=== PATIENT | female | born 1985 | race Caucasian/White ===

== ENCOUNTER 2020-07-14 01:28 | Emergency (ER) | payer MEDICAID, OTHER ==
[~2020-07-14] VITALS: Ht 149.9 cm; Wt 69.0 kg
[2020-07-14] MEDS ORDERED: SODIUM CHLORIDE 0.9% 1,000 ML IV ONE ×2 (02:00→05:00)
[2020-07-14 03:09] LABS: BASOPHILS % 0.4 % (0.0-2.0); EOSINOPHILS % 1.6 % (0.0-5.0); HEMATOCRIT. 35.7 % (36.0-48.0); HEMOGLOBIN. 11.9 g/dL (12.0-16.0); LYMPHOCYTES % 20.4 % (20.0-50.0); MEAN CORPUSCULAR HEMOGLOBIN 28.8 pg (28.0-32.0); MEAN CORPUSCULAR VOLUME 86.1 fL (81.0-99.0); MEAN PLATELET VOLUME 9.5 fl (7.4-10.4); MONOCYTES % 5.6 % (2.0-8.0); PLATELET 209 x1000/uL (130-400); RED BLOOD CELL COUNT 4.15 mill/uL (4.2-5.4); RED CELL DISTRIBUTION WIDTH 15.6 % (11.6-14.6)
[2020-07-14 03:10] LABS: CHLORIDE 109 mEq/L (98-107)
[2020-07-14] MEDS ORDERED: MORPHINE SULFATE 4 MG/ML CPJ (NOT FOR IM USE) IV ONE ×2 (03:15→05:00)
[2020-07-14] MEDS ORDERED: ONDANSETRON HCL 4MG/2ML INJ IV ONE (03:15)
[2020-07-14 03:37] LABS: B-HCG QUANTITATIVE 2682 mIU/mL (<3)
[2020-07-14] MEDS ORDERED: METHYLERGONOVINE MALEATE 0.2 MG/ML IM ONE (04:30)
[2020-07-14 08:30] VITALS: BP 125/80
== END 2020-07-14 09:30 | disposition home or self-care (01) ==
LOC: ER 01:28
DX: O03.9 Complete or unspecified spontaneous abortion without complication (principal); N93.9 Abnormal uterine and vaginal bleeding, unspecified; I49.9 Cardiac arrhythmia, unspecified
CPT/HCPCS: 36415; 76801; 76817; 80048; 84702; 85025; 86850; 86900; 86901; 93005; 96372; 96374; 96375; 96376; 99285; J2210; J2270; J2405; J7030

== ENCOUNTER 2020-07-23 22:29 | Emergency (ER) | payer OTHER ==
[~2020-07-23] VITALS: Ht 149.9 cm; Wt 69.0 kg
[2020-07-24] MEDS ORDERED: SODIUM CHLORIDE 0.9% 1,000 ML IV ONE
[2020-07-24 00:17] LABS: BASOPHILS % 0.5 % (0.0-2.0); EOSINOPHILS % 2.6 % (0.0-5.0); HEMATOCRIT. 30.7 % (36.0-48.0); HEMOGLOBIN. 10.3 g/dL (12.0-16.0); LYMPHOCYTES % 29.7 % (20.0-50.0); MEAN CORPUSCULAR HEMOGLOBIN 28.9 pg (28.0-32.0); MEAN CORPUSCULAR VOLUME 85.8 fL (81.0-99.0); MEAN PLATELET VOLUME 8.9 fl (7.4-10.4); NEUTROPHILS % 61.2 % (40.0-76.0); PLATELET 290 x1000/uL (130-400); RED BLOOD CELL COUNT 3.58 mill/uL (4.2-5.4); RED CELL DISTRIBUTION WIDTH 14.8 % (11.6-14.6)
[2020-07-24 00:20] LABS: CHLORIDE 110 mEq/L (98-107)
[2020-07-24 00:31] LABS: B-HCG QUANTITATIVE 188 mIU/mL (<3)
[2020-07-24 00:40] LABS: CLARITY URINE CLEAR (CLEAR); COLOR URINE YELLOW (YELLOW); KETONES URINE NEGATIVE (NEGATIVE); LEUKOCYTE ESTERASE URINE 1+ (NEGATIVE); NITRITE URINE NEGATIVE (NEGATIVE); OCCULT BLOOD URINE 3+ (NEGATIVE); PH URINE 5.5 (4.5-8.0); PROTEIN URINE NEGATIVE (NEGATIVE); SPECIFIC GRAVITY URINE 1.025 (1.005-1.030); UROBILINOGEN URINE 0.2 E.U./dL (0.2-1.0)
[2020-07-24] MEDS ORDERED: MORPHINE SULFATE 4 MG/ML CPJ (NOT FOR IM USE) IV ONE ×2 (01:45)
[2020-07-24 03:15] VITALS: BP 115/65
== END 2020-07-24 03:15 | disposition home or self-care (01) ==
LOC: ER 22:29
DX: O03.4 Incomplete spontaneous abortion without complication (principal)
CPT/HCPCS: 36415; 76801; 76817; 80053; 81003; 84702; 85025; 86850; 86900; 86901; 96361; 96374; 96376; 99285; J2270; J7030; Z7610

== ENCOUNTER 2023-05-24 16:05 | Emergency (ER) | payer OTHER ==
[~2023-05-24] VITALS: Ht 152.4 cm; Wt 68.0 kg
[2023-05-24 16:29] VITALS: O2SAT 100
[2023-05-24] MEDS ORDERED: KETOROLAC 30MG/ML VIAL IM ONE (17:30)
[2023-05-24] MEDS ORDERED: NAPR-1176 MT (18:14)
[2023-05-24] MEDS ORDERED: KETOROLAC 30MG/ML VIAL IM NR (20:30)
[2023-05-24 20:33] VITALS: BP 130/70; PULSE 76; RESP 16; TEMP 97.3
== END 2023-05-24 20:36 | disposition home or self-care (01) ==
LOC: ER 16:05
DX: S80.01XA Contusion of right knee, initial encounter (principal); W18.30XA Fall on same level, unspecified, initial encounter; Y93.89 Activity, other specified; Y92.89 Other specified places as the place of occurrence of the external cause; Y99.8 Other external cause status
CPT/HCPCS: 81025; 73562; 99283; J1885; Z7610 ×2

== ENCOUNTER 2023-05-30 01:27 | Emergency (ER) | payer OTHER ==
[~2023-05-30] VITALS: Ht 149.9 cm; Wt 72.7 kg
[~2023-05-30 01:27] MED LIST: NAPR-1176 MT
[2023-05-30 01:40] VITALS: BP 120/54; PULSE 68; RESP 16; TEMP 98.1; O2SAT 98
[2023-05-30 02:02] LABS: BASOPHILS % 0.4 % (0.0-2.0); EOSINOPHILS % 1.2 % (0.0-5.0); HEMATOCRIT. 38.5 % (36.0-48.0); HEMOGLOBIN. 12.7 g/dL (12.0-16.0); LYMPHOCYTES % 24.3 % (20.0-50.0); MEAN CORPUSCULAR HEMOGLOBIN 28.7 pg (28.0-32.0); MEAN CORPUSCULAR HGB CONC 32.9 g/dL (31.0-37.0); MEAN PLATELET VOLUME 9.1 fl (7.4-10.4); MONOCYTES % 6.1 % (2.0-8.0); PLATELET 244 x1000/uL (130-400); RED BLOOD CELL COUNT 4.42 mill/uL (4.2-5.4); RED CELL DISTRIBUTION WIDTH 14.7 % (11.6-14.6); WHITE BLOOD COUNT 12.5 x1000/uL (4.5-11.0)
[2023-05-30 02:15] LABS: CHLORIDE 111 mEq/L (98-107); INDEX HEMOLYSI 1 (1-3); INDEX ICTERIC 1 (1-4); INDEX LIPEMIC 1 (1-3); POTASSIUM 4.1 mEq/L (3.5-5.1); SODIUM 139 mEq/L (136-145)
[2023-05-30 02:21] LABS: ALANINE AMINOTRANSFERASE 19 IU/L (13-61); ALBUMIN 3.4 g/dL (3.4-5.0); ASPARTATE AMINOTRANSFERASE 9 IU/L (15-37); BILIRUBIN TOTAL 0.2 mg/dL (0.1-1.0); CALCIUM 8.3 mg/dL (8.5-10.1); CARBON DIOXIDE 26 mEq/L (21-32); CREATININE 0.7 mg/dL (0.6-1.3); GLUCOSE 96 mg/dL (70-105); PROTEIN TOTAL 7.4 g/dL (6.0-8.3); UREA NITROGEN BLOOD 13 mg/dL (7-21)
[2023-05-30 03:57] LABS: CLARITY URINE CLEAR (CLEAR); COLOR URINE YELLOW (YELLOW); GLUCOSE URINE NEGATIVE (NEGATIVE); KETONES URINE NEGATIVE (NEGATIVE); LEUKOCYTE ESTERASE URINE 2+ (NEGATIVE); NITRITE URINE NEGATIVE (NEGATIVE); OCCULT BLOOD URINE 2+ (NEGATIVE); PROTEIN URINE NEGATIVE (NEGATIVE); SPECIFIC GRAVITY URINE 1.007 (1.005-1.030); UROBILINOGEN URINE 0.2 E.U./dL (0.2-1.0)
[2023-05-30] MEDS ORDERED: NITR-87 MT (04:13)
[2023-05-30 04:19] LABS: BACTERIA URINE 1+; RBC URINE 0-2 /hpf (0-2); SQUAMOUS EPITHELIAL CELL URINE FEW /lpf (RARE/1+)
== END 2023-05-30 05:22 | disposition home or self-care (01) ==
LOC: ER 01:27
DX: N39.0 Urinary tract infection, site not specified (principal)
CPT/HCPCS: 36415; 80053; 81003; 85025; 99283

== ENCOUNTER 2023-07-24 15:51 | Emergency (ER) | payer OTHER ==
[~2023-07-24] VITALS: Ht 157.5 cm; Wt 67.0 kg
[~2023-07-24 15:51] MED LIST changes: +NITR-87 MT
[2023-07-24 16:39] VITALS: RESP 18; O2SAT 100
[2023-07-24 16:45] LABS: BASOPHILS % 0.7 % (0.0-2.0); EOSINOPHILS % 2.6 % (0.0-5.0); HEMATOCRIT. 40.9 % (36.0-48.0); HEMOGLOBIN. 13.4 g/dL (12.0-16.0); LYMPHOCYTES % 30.8 % (20.0-50.0); MEAN CORPUSCULAR HEMOGLOBIN 28.7 pg (28.0-32.0); MEAN CORPUSCULAR HGB CONC 32.8 g/dL (31.0-37.0); MEAN CORPUSCULAR VOLUME 87.5 fL (81.0-99.0); MEAN PLATELET VOLUME 9.9 fl (7.4-10.4); MONOCYTES % 5.9 % (2.0-8.0); PLATELET 250 x1000/uL (130-400); RED BLOOD CELL COUNT 4.67 mill/uL (4.2-5.4); RED CELL DISTRIBUTION WIDTH 14.6 % (11.6-14.6); WHITE BLOOD COUNT 10.8 x1000/uL (4.5-11.0)
[2023-07-24 16:54] LABS: CHLORIDE 106 mEq/L (98-107); INDEX HEMOLYSI 1 (1-3); INDEX ICTERIC 1 (1-4); INDEX LIPEMIC 1 (1-3); POTASSIUM 3.7 mEq/L (3.5-5.1); SODIUM 139 mEq/L (136-145)
[2023-07-24 17:05] LABS: CLARITY URINE CLEAR (CLEAR); COLOR URINE YELLOW (YELLOW); GLUCOSE URINE NEGATIVE (NEGATIVE); KETONES URINE NEGATIVE (NEGATIVE); LEUKOCYTE ESTERASE URINE NEGATIVE (NEGATIVE); NITRITE URINE NEGATIVE (NEGATIVE); OCCULT BLOOD URINE 3+ (NEGATIVE); PH URINE 6.5 (4.5-8.0); PROTEIN URINE NEGATIVE (NEGATIVE); SPECIFIC GRAVITY URINE 1.007 (1.005-1.030); UROBILINOGEN URINE 0.2 E.U./dL (0.2-1.0)
[2023-07-24 17:07] LABS: BACTERIA URINE NONE SEEN; SQUAMOUS EPITHELIAL CELL URINE NONE SEEN /lpf (RARE/1+); WBC URINE 0-2 /hpf (0-2); YEAST URINE NONE SEEN
[2023-07-24 17:08] LABS: ALANINE AMINOTRANSFERASE 18 IU/L (13-61); ALBUMIN 3.7 g/dL (3.4-5.0); ASPARTATE AMINOTRANSFERASE 12 IU/L (15-37); B-HCG QUANTITATIVE < 1 mIU/mL (<3); BILIRUBIN TOTAL 0.3 mg/dL (0.1-1.0); CALCIUM 8.6 mg/dL (8.5-10.1); CARBON DIOXIDE 28 mEq/L (21-32); CREATININE 0.5 mg/dL (0.6-1.3); GLUCOSE 91 mg/dL (70-105); PROTEIN TOTAL 7.9 g/dL (6.0-8.3); UREA NITROGEN BLOOD 8 mg/dL (7-21)
[2023-07-24 18:00] VITALS: BP 124/71; PULSE 71; TEMP 97.9
== END 2023-07-24 18:02 | disposition home or self-care (01) ==
LOC: ER 15:51
DX: O46.91 Antepartum hemorrhage, unspecified, first trimester (principal); Z3A.01 Less than 8 weeks gestation of pregnancy
CPT/HCPCS: 36415; 80053; 81003; 84702; 85025; 86850; 86900; 99283

== ENCOUNTER 2023-07-31 13:12 | Emergency (ER) | payer OTHER ==
[~2023-07-31] VITALS: Ht 149.9 cm; Wt 75.0 kg
[2023-07-31 13:14] VITALS: BP 127/86; PULSE 98; RESP 16; TEMP 98.5; O2SAT 100
[2023-07-31] MEDS ORDERED: METOCLOPRAMIDE HCL 10MG/2ML VIAL IV ONE (16:45)
== END 2023-07-31 18:02 | disposition left against medical advice (07) ==
LOC: ER 13:12
DX: R51.9 Headache, unspecified (principal); Z53.21 Procedure and treatment not carried out due to patient leaving prior to being seen by health care provider
CPT/HCPCS: 99281

== ENCOUNTER 2023-08-02 08:41 | Emergency (ER) | payer OTHER ==
[~2023-08-02] VITALS: Ht 154.9 cm; Wt 73.0 kg
[2023-08-02 08:49] VITALS: BP 133/66; PULSE 80; RESP 18; O2SAT 100
[2023-08-02] MEDS ORDERED: ACETAMINOPHEN 325MG TABLET PO ONE (10:15)
[2023-08-02 10:51] VITALS: TEMP 98.4
[2023-08-02 11:14] LABS: CLARITY URINE CLEAR (CLEAR); COLOR URINE YELLOW (YELLOW); GLUCOSE URINE NEGATIVE (NEGATIVE); KETONES URINE NEGATIVE (NEGATIVE); LEUKOCYTE ESTERASE URINE NEGATIVE (NEGATIVE); NITRITE URINE NEGATIVE (NEGATIVE); OCCULT BLOOD URINE 1+ (NEGATIVE); PH URINE 6.5 (4.5-8.0); PROTEIN URINE NEGATIVE (NEGATIVE); UROBILINOGEN URINE 0.2 E.U./dL (0.2-1.0)
[2023-08-02 11:16] LABS: BACTERIA URINE 1+; SQUAMOUS EPITHELIAL CELL URINE NONE SEEN /lpf (RARE/1+); WBC URINE 0-2 /hpf (0-2); YEAST URINE NONE SEEN
== END 2023-08-02 13:27 | disposition home or self-care (01) ==
LOC: ER 08:41
DX: R51.9 Headache, unspecified (principal)
CPT/HCPCS: 81003; 81025; 99284

== ENCOUNTER 2023-12-02 23:49 | Emergency (ER) | payer OTHER ==
[~2023-12-02] VITALS: Ht 149.9 cm; Wt 71.0 kg
[2023-12-03 01:28] VITALS: BP 116/62; PULSE 80; RESP 18; TEMP 97.7; O2SAT 100
[2023-12-03 01:37] LABS: CLARITY URINE CLEAR (CLEAR); COLOR URINE YELLOW (YELLOW); GLUCOSE URINE NEGATIVE (NEGATIVE); KETONES URINE NEGATIVE (NEGATIVE); LEUKOCYTE ESTERASE URINE NEGATIVE (NEGATIVE); NITRITE URINE NEGATIVE (NEGATIVE); OCCULT BLOOD URINE 1+ (NEGATIVE); PROTEIN URINE NEGATIVE (NEGATIVE); SPECIFIC GRAVITY URINE 1.025 (1.005-1.030); UROBILINOGEN URINE 0.2 E.U./dL (0.2-1.0)
[2023-12-03 02:48] LABS: SQUAMOUS EPITHELIAL CELL URINE 1+ /lpf (RARE/1+)
[2023-12-03 02:49] LABS: RBC URINE 0-2 /hpf (0-2); WBC URINE 0-2 /hpf (0-2)
[2023-12-03 02:50] LABS: BACTERIA URINE NONE SEEN
== END 2023-12-03 06:11 | disposition left against medical advice (07) ==
LOC: ER 23:58
DX: R10.9 Unspecified abdominal pain (principal); Z53.21 Procedure and treatment not carried out due to patient leaving prior to being seen by health care provider
CPT/HCPCS: 81003; 81025; 99281

== ENCOUNTER 2024-09-09 10:12 | Emergency (ER) | payer OTHER ==
[~2024-09-09] VITALS: Ht 149.9 cm; Wt 68.0 kg
[2024-09-09 10:33] VITALS: BP 128/65; PULSE 75; RESP 16; TEMP 98.6; O2SAT 100
[2024-09-09 11:03] LABS: CLARITY URINE CLEAR (CLEAR); COLOR URINE YELLOW (YELLOW); GLUCOSE URINE NEGATIVE (NEGATIVE); KETONES URINE NEGATIVE (NEGATIVE); LEUKOCYTE ESTERASE URINE NEGATIVE (NEGATIVE); NITRITE URINE NEGATIVE (NEGATIVE); OCCULT BLOOD URINE 1+ (NEGATIVE); PH URINE 6.5 (4.5-8.0); PROTEIN URINE NEGATIVE (NEGATIVE); SPECIFIC GRAVITY URINE 1.015 (1.005-1.030); UROBILINOGEN URINE 0.2 E.U./dL (0.2-1.0)
[2024-09-09 11:09] LABS: CHLORIDE 107 mEq/L (98-107); POTASSIUM 4.8 mEq/L (3.5-5.1); SODIUM 140 mEq/L (136-145)
[2024-09-09 11:10] LABS: CALCIUM 9.4 mg/dL (8.7-10.4); CARBON DIOXIDE 27 mEq/L (21-32)
[2024-09-09 11:13] LABS: BASOPHILS % 0.9 % (0.0-2.0); EOSINOPHILS % 2.8 % (0.0-5.0); HEMATOCRIT. 41.2 % (36.0-48.0); HEMOGLOBIN. 13.5 g/dL (12.0-16.0); LYMPHOCYTES % 24.2 % (20.0-50.0); MEAN CORPUSCULAR HEMOGLOBIN 29.7 pg (28.0-32.0); MEAN CORPUSCULAR HGB CONC 32.9 g/dL (31.0-37.0); MEAN CORPUSCULAR VOLUME 90.4 fL (81.0-99.0); MONOCYTES % 4.9 % (2.0-8.0); NEUTROPHILS % 67.2 % (40.0-76.0); PLATELET 240 x1000/uL (130-400); RED BLOOD CELL COUNT 4.56 mill/uL (4.2-5.4); WHITE BLOOD COUNT 9.6 x1000/uL (4.5-11.0)
[2024-09-09 11:15] LABS: CREATININE 0.7 mg/dL (0.6-1.0); GLUCOSE 89 mg/dL (70-105); UREA NITROGEN BLOOD 8 mg/dL (9-23)
[2024-09-09 11:20] LABS: BACTERIA URINE 2+; SQUAMOUS EPITHELIAL CELL URINE 1+ /lpf (RARE/1+); WBC URINE 0-2 /hpf (0-2); YEAST URINE NONE SEEN
[2024-09-09] MEDS: SODIUM CHLORIDE 0.9% 500 ML IV ONE (11:54)
[2024-09-09] MEDS: ONDANSETRON 4MG ODT PO ONE (11:56)
[2024-09-09] MEDS: MECLIZINE 25MG TABLET PO ONE (11:56)
[2024-09-09] MEDS: ACETAMINOPHEN 325MG TABLET PO ONE (14:33)
[2024-09-09] MEDS: IBUPROFEN 600MG TABLET PO ONE (14:33)
[2024-09-09] MEDS: SUMATRIPTAN SUCCINATE 6MG/0.5ML VIAL SUBCUT ONE (14:33)
[2024-09-09] MEDS ORDERED: IMIT25 MT (15:32)
[2024-09-09] MEDS ORDERED: MECL-299 MT (15:32)
[2024-09-09] MEDS ORDERED: TOPUD MT (15:32)
[2024-09-09] MEDS ORDERED: ONDA4TAB50 MT (15:32)
[2024-09-09 15:59] LABS: HCG SCREEN NEGATIVE
== END 2024-09-09 18:00 | disposition home or self-care (01) ==
LOC: ER 10:21
DX: R51.9 Headache, unspecified (principal); R42 Dizziness and giddiness; Z79.899 Other long term (current) drug therapy
CPT/HCPCS: 99284; 96360; 96361; 80048; 81003; 81025; 84703; 85025; 36415; 96372; J8597; Q0162; J3030; J7040